=== PATIENT | female | born 1930 | race Caucasian/White ===

== ENCOUNTER 2016-07-06 08:08 | Emergency (ER) | payer MEDICARE ==
--- NOTE | 2016-07-06 08:40 | Emergency Department Record ---
History of Present Illness - General Chief complaint: Extremity Problem Stated complaint: HAND NOT HEALING Time Seen by Provider: 07/06/16 08:31 Source: Patient Mode of Arrival: Ambulatory - History of Present Illness Initial comments: Patient got her hands caught in a swinging door on june 22 and she is on coumadin and she was seen at [facility] and xray revealed no fractures and she has a large hematoma of her left hand and she saw Dr. Pam morrow and he said to stop the coumdin for 3 days and she is wearing an masha wrap. Onset/Timin -: Days(s) Location: Left, Hand History of Same: No Severity scale (1-10): 5 Quality: Other Consistency: Constant Improves with: Elevation Worsens with: Exertion, Palpation Associated Symptoms: Denies other symptoms - Related Data Home Medications Medication Instructions Recorded Confirmed Last Taken Pantoprazole Sodium [Protonix] 20 mg PO DAILY 09/04/14 07/06/16 07/06/16 Levothyroxine Sodium [Synthroid] 88 mcg PO DAILY 11/05/14 07/06/16 07/06/16 Warfarin Sodium [Coumadin] 2.5 mg PO ASDIR tab 08/10/15 07/06/16 07/06/16 Warfarin Sodium [Coumadin] 5 mg PO ASDIR 10/03/15 07/06/16 07/06/16 Previous Rx's Medication Instructions Recorded Diltiazem HCl [Cardizem Cd] 120 mg PO DAILY #90 cap.er.24h 12/01/14 Allergies Allergy/AdvReac Type Severity Reaction Status Date / Time venom-honey bee Allergy Intermediate SWELLING Verified 07/06/16 08:15 (GENERAL) Travel Screening - Travel/Exposure Within Last 30 Days Have you traveled within the last 30 days?: No - Travel/Exposure Within Last Year Have you traveled outside the [place] in the last year?: No - Additonal Travel Details Have you been exposed to anyone with a communicable illness?: No - Travel Symptoms Symptom Screening: None Review of Systems Reviewed: No additional complaints except as noted below Constitutional: Reports: As per HPI. Denies: Chills, Fever, Malaise, Night sweats, Weakness, Weight change Eyes: Reports: As per HPI. Denies: Eye discharge, Eye pain, Photophobia, Vision change ENT: Reports: As per HPI. Denies: Congestion, Dental pain, Ear pain, Epistaxis , Hearing loss, Throat pain Respiratory: Reports: As per HPI. Denies: Cough, Dyspnea, Hemoptysis, Stridor, Wheezes Cardiovascular: Reports: As per HPI. Denies: Arrhythmia, Chest pain, Dyspnea on exertion, Edema, Murmurs, Orthopnea, Palpitations, Paroxysmal nocturnal dyspnea, Rheumatic Fever, Syncope Endocrine: Reports: As per HPI. Denies: Fatigue, Heat or cold intolerance, Polydipsia, Polyuria Gastrointestinal: Reports: As per HPI. Denies: Abdominal pain, Constipation, Diarrhea, Hematemesis, Hematochezia, Melena, Nausea, Vomiting Genitourinary: Reports: As per HPI. Denies: Abnormal menses, Discharge, Dyspareunia, Dysuria, Frequency, Hematuria, Incontinence, Retention, Urgency Musculoskeletal: Reports: As per HPI. Denies: Arthralgia, Back pain, Gout, Joint swelling, Myalgia, Neck pain Skin: Reports: As per HPI. Denies: Bruising, Change in color, Change in hair/ nails, Lesions, Pruritus, Rash Neurological: Reports: As per HPI. Denies: Abnormal gait, Confusion, Headache, Numbness, Paresthesias, Seizure, Tingling, Tremors, Vertigo, Weakness Psychiatric: Reports: As per HPI. Denies: Anxiety, Auditory hallucinations, Depression, Homicidal thoughts, Suicidal thoughts, Visual hallucinations Hematological/Lymphatic: Reports: As per HPI. 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 - RESPIRATORY Hx Respiratory Disorders: No - CARDIOVASCULAR Hx Cardio Disorders: Yes Hx Chest Pain: No Hx Irregular Heartbeat: Yes (Hx atrial fibrillation 08/2014) Hx Palpitations: Yes (Hx atrial fibrillation 08/2014) Hx Coronary Stent: No Comment:: Aortic stenosis - NEURO Hx Neuro Disorders: No - GI Hx GI Disorders: Yes Hx Reflux: Yes Hx Ulcer: Yes - Hx Genitourinary Disorders: No - ENDOCRINE Hx Endocrine Disorders: Yes Hx Diabetes: No Hx Thyroid Disease: Yes (Hypothyroid) - MUSCULOSKELETAL Hx Musculoskeletal Disorders: Yes Hx Arthritis: Yes - PSYCH Hx Psych Problems: Yes Hx Anxiety: Yes - HEMATOLOGY/ONCOLOGY Hx Hematology/Oncology Disorders: Yes Hx Bruising: Yes Family Medical History Any Significant Family History?: No Physical Exam - General General Appearance: Alert, Oriented x3, Cooperative, No acute distress - Head Head exam: Normal inspection - Eye Eye exam: Normal appearance, PERRL Pupils: Normal accommodation - ENT ENT exam: Normal exam, Mucous membranes moist, Normal external ear exam, Normal orophraynx, TM's normal bilaterally Ear exam: Normal external inspection. negative: External canal tenderness Nasal Exam: Normal inspection. negative: Discharge, Sinus tenderness Mouth exam: Normal external inspection, Tongue normal Teeth exam: Normal inspection. negative: Dental caries Throat exam: Normal inspection. negative: Tonsillar erythema, Tonsillar exudate - Neck Neck exam: Normal inspection, Full ROM. negative: Tenderness - Respiratory Respiratory exam: Normal lung sounds bilaterally. negative: Respiratory distress - Cardiovascular Cardiovascular Exam: Regular rate, Normal rhythm, Normal heart sounds - GI/Abdominal GI/Abdominal exam: Soft, Normal bowel sounds. negative: Tenderness - Rectal Rectal exam: Deferred - exam: Deferred - Extremities Extremities exam: Normal inspection, Full ROM, Normal capillary refill, Other ( hematoma on the dorsal side of the hand. Full ROM of fingers and wrist). negative: Tenderness - Back Back exam: Reports: Normal inspection, Full ROM. Denies: Muscle spasm, Rash noted, Tenderness - Neurological Neurological exam: Alert, Normal gait, Oriented X3, Reflexes normal - Psychiatric Psychiatric exam: Normal affect, Normal mood - Skin Skin exam: Dry, Intact, Normal color, Warm Course Vital Signs 07/06/16 08:17 Temperature 97.5 F L Pulse Rate 80 Respiratory 20 Rate Blood Pressure 156/68 Pulse Ox 98 - Reevaluation(s) Reevaluation #1: patient has an outpatient coumadin draw today and I advised she keep that appointment. 07/06/16 08:41 Disposition Clinical Impression: Traumatic hematoma of right hand Qualifiers: Encounter type: initial encounter Qualified Code(s): S60.221A - Contusion of right hand, initial encounter Disposition: Home, Self-Care Condition: (1) Good Instructions: Contusion in Adults (ED) Additional Instructions: use the masha wrap follow up with family in 5 days Forms: Patient Portal Access Time of Disposition: 08:42
== END 2016-07-06 08:49 | disposition home or self-care (01) ==
LOC: ER 08:08
DX: S60.221A Contusion of right hand, initial encounter (principal); W23.0XXA Caught, crushed, jammed, or pinched between moving objects, initial encounter; I48.91 Unspecified atrial fibrillation; Z79.01 Long term (current) use of anticoagulants
CPT/HCPCS: 85610; 99282

== ENCOUNTER 2016-08-17 10:26 | Emergency (ER) | payer MEDICARE ==
--- NOTE | 2016-08-17 11:29 | Emergency Department Record ---
History of Present Illness - General Chief Complaint: Neck Injury/Pain Stated Complaint: STIFF NECK Time Seen by Provider: 08/17/16 11:12 Source: Patient, RN notes reviewed Mode of Arrival: Ambulatory - History of Present Illness Initial Comments: sleeping with an open window and now her neck is stiff on the right side and no trauma and she has tried heat and she is on coumadin for a fib MD Complaint: Neck pain Onset/Timin -: Days(s) Place: Home Quality: Aching Consistency: Constant Improves With: None Worsens With: Movement of extremity - Related Data Home Medications Medication Instructions Recorded Confirmed Last Taken Pantoprazole Sodium [Protonix] 20 mg PO DAILY 09/04/14 08/17/16 08/16/16 Levothyroxine Sodium [Synthroid] 100 mcg PO DAILY 11/05/14 08/17/16 08/17/16 Warfarin Sodium [Coumadin] 2.5 mg PO ASDIR tab 08/10/15 08/17/16 08/16/16 Previous Rx's Medication Instructions Recorded Diltiazem HCl [Cardizem Cd] 120 mg PO DAILY #90 cap.er.24h 12/01/14 Cyclobenzaprine HCl [Flexeril] 5 mg PO TID #30 tab 08/17/16 Allergies Allergy/AdvReac Type Severity Reaction Status Date / Time venom-honey bee Allergy Intermediate SWELLING Verified 07/06/16 08:15 (GENERAL) Travel Screening - Travel/Exposure Within Last 30 Days Have you traveled within the last 30 days?: No - Travel/Exposure Within Last Year Have you traveled outside the [place] in the last year?: No - Additonal Travel Details Have you been exposed to anyone with a communicable illness?: No - Travel Symptoms Symptom Screening: None Review of Systems Reviewed: No additional complaints except as noted below Constitutional: Reports: As per HPI. Denies: Chills, Fever, Malaise, Night sweats, Weakness, Weight change Eyes: Reports: As per HPI. Denies: Eye discharge, Eye pain, Photophobia, Vision change ENT: Reports: As per HPI. Denies: Congestion, Dental pain, Ear pain, Epistaxis , Hearing loss, Throat pain Respiratory: Reports: As per HPI. Denies: Cough, Dyspnea, Hemoptysis, Stridor, Wheezes Cardiovascular: Reports: As per HPI. Denies: Arrhythmia, Chest pain, Dyspnea on exertion, Edema, Murmurs, Orthopnea, Palpitations, Paroxysmal nocturnal dyspnea, Rheumatic Fever, Syncope Endocrine: Reports: As per HPI. Denies: Fatigue, Heat or cold intolerance, Polydipsia, Polyuria Gastrointestinal: Reports: As per HPI. Denies: Abdominal pain, Constipation, Diarrhea, Hematemesis, Hematochezia, Melena, Nausea, Vomiting Genitourinary: Reports: As per HPI. Denies: Abnormal menses, Discharge, Dyspareunia, Dysuria, Frequency, Hematuria, Incontinence, Retention, Urgency Musculoskeletal: Reports: As per HPI, Neck pain. Denies: Arthralgia, Back pain , Gout, Joint swelling, Myalgia Skin: Reports: As per HPI. Denies: Bruising, Change in color, Change in hair/ nails, Lesions, Pruritus, Rash Neurological: Reports: As per HPI. Denies: Abnormal gait, Confusion, Headache, Numbness, Paresthesias, Seizure, Tingling, Tremors, Vertigo, Weakness Psychiatric: Reports: As per HPI. Denies: Anxiety, Auditory hallucinations, Depression, Homicidal thoughts, Suicidal thoughts, Visual hallucinations Hematological/Lymphatic: Reports: As per HPI. 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 - RESPIRATORY Hx Respiratory Disorders: No - CARDIOVASCULAR Hx Cardio Disorders: Yes Hx Chest Pain: No Hx Irregular Heartbeat: Yes (Hx atrial fibrillation 08/2014) Hx Palpitations: Yes (Hx atrial fibrillation 08/2014) Hx Coronary Stent: No Comment:: Aortic stenosis - NEURO Hx Neuro Disorders: No - GI Hx GI Disorders: Yes Hx Reflux: Yes Hx Ulcer: Yes - Hx Genitourinary Disorders: No - ENDOCRINE Hx Endocrine Disorders: Yes Hx Diabetes: No Hx Thyroid Disease: Yes (Hypothyroid) - MUSCULOSKELETAL Hx Musculoskeletal Disorders: Yes Hx Arthritis: Yes - PSYCH Hx Psych Problems: Yes Hx Anxiety: Yes - HEMATOLOGY/ONCOLOGY Hx Hematology/Oncology Disorders: Yes Hx Bruising: Yes Family Medical History Any Significant Family History?: No Physical Exam - General General Appearance: Alert, Oriented x3, Cooperative, No acute distress - Head Head exam: Normal inspection - Eye Eye exam: Normal appearance, PERRL Pupils: Normal accommodation - ENT ENT exam: Normal exam, Mucous membranes moist, Normal external ear exam, Normal orophraynx, TM's normal bilaterally Ear exam: Normal external inspection. negative: External canal tenderness Nasal Exam: Normal inspection. negative: Discharge, Sinus tenderness Mouth exam: Normal external inspection, Tongue normal Teeth exam: Normal inspection. negative: Dental caries Throat exam: Normal inspection. negative: Tonsillar erythema, Tonsillar exudate - Neck Neck exam: Normal inspection, Full ROM, Tenderness (right trapizus muscle pain and right paravertebral muscle pain. ) - Respiratory Respiratory exam: Normal lung sounds bilaterally. negative: Respiratory distress - Cardiovascular Cardiovascular Exam: Regular rate, Normal rhythm, Normal heart sounds - GI/Abdominal GI/Abdominal exam: Soft, Normal bowel sounds. negative: Tenderness - Rectal Rectal exam: Deferred - exam: Deferred - Extremities Extremities exam: Normal inspection, Full ROM, Normal capillary refill. negative: Tenderness - Back Back exam: Reports: Normal inspection, Full ROM. Denies: Muscle spasm, Rash noted, Tenderness - Neurological Neurological exam: Alert, Normal gait, Oriented X3, Reflexes normal - Psychiatric Psychiatric exam: Normal affect, Normal mood - Skin Skin exam: Dry, Intact, Normal color, Warm Course Vital Signs 08/17/16 10:43 Temperature 97.6 F Pulse Rate 78 Respiratory 20 Rate Blood Pressure 156/76 Pulse Ox 96 Disposition Clinical Impression: Cervical strain Qualifiers: Encounter type: initial encounter Qualified Code(s): S16.1XXA - Strain of muscle, fascia and tendon at neck level, initial encounter Disposition: Home, Self-Care Condition: (1) Good Instructions: Cervical Sprain (ED) Additional Instructions: heat three times a day follow up with family on monday use tylenal three times a day Prescriptions: Cyclobenzaprine HCl [Flexeril] 5 mg PO TID #30 tab Forms: Patient Portal Access Time of Disposition: 11:29
== END 2016-08-17 11:38 | disposition home or self-care (01) ==
LOC: ER 10:26
DX: S16.1XXA Strain of muscle, fascia and tendon at neck level, initial encounter (principal); I48.91 Unspecified atrial fibrillation; Z79.4 Long term (current) use of insulin; X58.XXXA Exposure to other specified factors, initial encounter
CPT/HCPCS: 99282

== ENCOUNTER 2017-05-25 12:25 | Emergency (ER) | payer MEDICARE ==
--- NOTE | 2017-05-25 12:36 | Emergency Department Record ---
History of Present Illness - General Chief Complaint: Trauma Stated Complaint: FELL HIT HEAD Time Seen by Provider: 05/25/17 12:30 Source: Patient, Family Mode of Arrival: Ambulatory Limitations: No limitations - History of Present Illness Initial Comments: 86 yo female presents after a fall about one hour prior to arrival. She was walking up a step in her garage and fell backward. She hit the back of her head. No LOC. She was able to get up immediately. She has an area of swelling over the right posterior scalp. No headache, confusion, dizziness, or nausea. She is on the Coumadin for atrial fibrillation. No other complaints or injuries. MD Complaint: Fall -: Hour(s) (1) Consistency: Constant Context: Mechanical fall, Other Associated Symptoms: Denies other symptoms Treatments Prior to Arrival: Other (Coumadin) - Related Data Previous Rx's Medication Instructions Recorded Diltiazem HCl [Cardizem Cd] 120 mg PO DAILY #90 cap.er.24h 12/01/14 Allergies Allergy/AdvReac Type Severity Reaction Status Date / Time venom-honey bee Allergy Intermediate SWELLING Verified 05/25/17 13:09 (GENERAL) Review of Systems Constitutional: Denies: Chills, Fever, Malaise, Weakness Eyes: Denies: Eye discharge ENT: Denies: Congestion, Throat pain Respiratory: Denies: Cough, Dyspnea, Hemoptysis, Stridor, Wheezes Cardiovascular: Denies: Chest pain, Palpitations (history of atrial fibrillation ), Syncope Endocrine: Denies: Fatigue, Polydipsia, Polyuria Gastrointestinal: Denies: Abdominal pain, Diarrhea, Nausea, Vomiting Genitourinary: Denies: Dysuria, Urgency Musculoskeletal: Denies: Arthralgia, Back pain, Myalgia Skin: Reports: Bruising Neurological: Denies: Abnormal gait, Confusion, Headache, Numbness, Seizure, Tingling, Tremors, Vertigo, Weakness Psychiatric: Denies: Anxiety Hematological/Lymphatic: Reports: As per HPI, Easy bleeding, Easy bruising Past Medical History - SOCIAL HISTORY Smoking Status: Never smoker Drug Use: None - 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 - RESPIRATORY Hx Respiratory Disorders: No - CARDIOVASCULAR Hx Cardio Disorders: Yes Hx Chest Pain: No Hx Irregular Heartbeat: Yes (Hx atrial fibrillation 08/2014) Hx Palpitations: Yes (Hx atrial fibrillation 08/2014) Hx Coronary Stent: No Comment:: Aortic stenosis - NEURO Hx Neuro Disorders: No - GI Hx GI Disorders: Yes Hx Reflux: Yes Hx Ulcer: Yes - Hx Genitourinary Disorders: No - ENDOCRINE Hx Endocrine Disorders: Yes Hx Diabetes: No Hx Thyroid Disease: Yes (Hypothyroid) - MUSCULOSKELETAL Hx Musculoskeletal Disorders: Yes Hx Arthritis: Yes - PSYCH Hx Psych Problems: Yes Hx Anxiety: Yes - HEMATOLOGY/ONCOLOGY Hx Hematology/Oncology Disorders: Yes Hx Bruising: Yes Physical Exam - General General Appearance: Alert, Oriented x3, Cooperative, No acute distress Limitations: No limitations - Head Head exam: negative: Atraumatic, Normal inspection Head exam detail: Contusion, Hematoma Image of Face/Head: 1 - mild swelling of the right posterior scalp - Eye Eye exam: Normal appearance, PERRL, EOMI. negative: Conjunctival injection, Scleral icterus - ENT ENT exam: Normal exam, Mucous membranes moist Ear exam: Normal external inspection Nasal Exam: Normal inspection Mouth exam: Normal external inspection Teeth exam: Normal inspection Throat exam: Normal inspection - Neck Neck exam: Normal inspection, Full ROM, Other (Non tender to palpation). negative: Tenderness - Respiratory Respiratory exam: Normal lung sounds bilaterally. negative: Respiratory distress, Rhonchi, Stridor, Wheezes - Cardiovascular Cardiovascular Exam: Regular rate. negative: Normal rhythm Peripheral Pulses: 2+: Radial (R), Radial (L) - GI/Abdominal GI/Abdominal exam: Soft. negative: Tenderness - Rectal Rectal exam: Deferred - exam: Deferred - Extremities Extremities exam: Normal inspection, Full ROM, Normal capillary refill. negative: Calf tenderness, Joint swelling, Pedal edema, Tenderness - Back Back exam: Reports: Normal inspection, Full ROM, Other (No bruising or abrasions ). Denies: CVA tenderness (R), CVA tenderness (L), Muscle spasm, Paraspinal tenderness, Tenderness, Vertebral tenderness - Neurological Neurological exam: Alert, Oriented X3. negative: Abnormal gait - Psychiatric Psychiatric exam: Normal affect, Normal mood - Skin Skin exam: Other (scalp abrasion) Course - Reevaluation(s) Reevaluation #1: 05/25/17 12:35 Given the patient is on Coumadin and has a head injury she was made a Trauma Alert 05/25/17 12:44 EKG NSR rate 82 intervals Qtc 466, axis rightward, No acute ST changes. 05/25/17 13:25 The HCT was negative for acute intracranial process. She has a posterior scalp hematoma The Cervical CT was negative for acute injury. INR is 1.8 Given her scalp hematoma on Coumadin Trauma will be consulted I QUITA Parada of trauma he agrees with transfer for observation. He recommends vitamin k 5mg at this time Medical Decision Making - Lab Data Result diagrams: 05/25/17 12:30 05/25/17 12:30 Disposition Disposition: Transfer Clinical Impression: Hematoma of scalp, HX: anticoagulation Disposition: Acute Care Hospital Transfer Transfer To: [facility] Reason For Transfer: Head injury on coumadin Accepting Physician: Skip Time Discussed w/Accepting Physician: 13:33 Condition: (2) Stable Forms: Patient Portal Access Time of Disposition: 13:33 Quality - Quality Measures Quality Measures: N/A - Blood Pressure Screening Does Patient Have Any of the Following: Active Dx of HTN Blood Pressure Classification: Hypertensive Reading Systolic Measurement: 150 Diastolic Measurement: 61 Screening for High Blood Pressure: Patient Exclusion, Hx of HTN [[id number]]
[2017-05-25 12:39] LABS: BASO % 0.1 % (0-6); EOS % 0.3 % (0-6); GRAN % 74.3 % (47-80); HEMATOCRIT 39.5 % (35.0-47.0); HEMOGLOBIN 12.8 gm/dl (11.6-16.0); MEAN CELL VOLUME 94.5 fl (81-97); MEAN CORPUSCULAR HEMOGLOBIN 30.6 pg (27-33); MEAN CORPUSCULAR HGB CONC 32.4 g/dl (32-36); MEAN PLATELET VOLUME 11.1 fl (7.4-10.4); MONO % 8.3 % (0-9); PLATELET COUNT 230 K/uL (130-400); RED BLOOD COUNT 4.18 M/uL (3.80-5.40); RED CELL DISTRIBUTION WIDTH 13.1 % (11.5-14.5); WHITE BLOOD COUNT W/O DIFF 9.4 K/uL (4.2-12.2)
[2017-05-25 12:53] LABS: BILIRUBIN,TOTAL 0.4 mg/dL (0.2-1.0); TOTAL PROTEIN 6.9 g/dL (6.6-8.7)
[2017-05-25 12:58] LABS: ALBUMIN 4.6 g/dL (4.0-5.0)
[2017-05-25 12:59] LABS: INR 1.8; PARTIAL THROMBOPLASTIN TIME 34.8 SECONDS (24.5-39.1)
[2017-05-25] MEDS ORDERED: PHYTONADIONE 10 MG/ML AMPUL PO ONE (13:43)
--- NOTE | 2017-05-25 15:14 | CT SCAN REPORT ---
EXAM: CT OF THE CERVICAL SPINE HISTORY: FALL. TECHNIQUE: Axial CT images of the cervical spine were obtained with coronal and sagittal reconstructions. Comparison: None. FINDINGS: Evaluation of spinal canal contents is limited due to CT technique, however, the vertebral body height and alignment is preserved. The atlantoaxial space is preserved. The lateral masses are not displaced. Degenerative changes at multiple levels, greatest at C6-C7. Limited evaluation of the lung apices is unremarkable. IMPRESSION: NO CT EVIDENCE FOR ACUTE CERVICAL SPINE ABNORMALITY. JOB NUMBER: [id number] [facility]TDD
--- NOTE | 2017-05-25 15:17 | CT SCAN REPORT ---
EXAM: CT OF THE BRAIN HISTORY: FALL. TECHNIQUE: CT of the brain without contrast was obtained. Comparison: None. FINDINGS: The globes are intact. The paranasal sinuses and mastoid air cells are unremarkable. No displaced or depressed skull fracture. Posterior parietal scalp hematoma. Negative for acute intracranial hemorrhage. CT is limited for evaluation of acute infarct. No CT evidence for large or territorial acute infarct. No mass or midline shift. Age appropriate atrophy with minor small vessel ischemic change. IMPRESSION: POSTERIOR RIGHT PARIETAL SCALP HEMATOMA. ATROPHY. SMALL VESSEL ISCHEMIC CHANGE. JOB NUMBER: [id number] [facility]
== END 2017-05-25 17:23 | disposition short-term general hospital (02) ==
LOC: ER 12:25
DX: S00.03XA Contusion of scalp, initial encounter (principal); W10.9XXA Fall (on) (from) unspecified stairs and steps, initial encounter; Y92.008 Other place in unspecified non-institutional (private) residence as the place of occurrence of the external cause; I48.91 Unspecified atrial fibrillation; I10 Essential (primary) hypertension; Z79.01 Long term (current) use of anticoagulants; E03.9 Hypothyroidism, unspecified
CPT/HCPCS: 99285 ×2; 85025; 85730; 85610; 80053; 72125; 70450; 93005; 93010; G0480; 80320

== ENCOUNTER 2017-06-02 13:05 | Emergency (ER) | payer MEDICARE ==
[2017-06-02] MEDS ORDERED: ACETAMINOPHEN 500 MG TABLET PO ONE (13:25)
--- NOTE | 2017-06-02 13:27 | Emergency Department Record ---
History of Present Illness - General Chief complaint: Head Injury Stated complaint: HEAD INJURY Time Seen by Provider: 06/02/17 13:21 Source: Patient, Family Mode of Arrival: Ambulatory Limitations: No limitations - History of Present Illness Initial comments: 86 yo female presents with posterior head pain. She fell last week and hit the back of her head. She was on Coumadin at that time. She had a negative head CT but did have large posterior scalp hematoma. She was transferred to [facility] , given Vitamin K and rescanned. No ICH occurred. She was discharged on Eliquis. She has done well since [place]. She noted pain today in the posterior head near the scalp hematoma. NO new injuries. The swelling has been improving since discharge from [facility]. No dizziness, nausea, or vomiting. She has developed diarrhea. MD Complaint: Head injury, Head pain -: Days(s) (1) Mechanism of Injury: Mechanical fall (one week ago) Location: Other (posterior) Loss of Consciousness: No Previous Trauma to this Area: Yes Place: Home Radiation: None Severity: Moderate Quality: Aching Consistency: Constant Provoking factors: None known Other Injuries: None Context: On other anticoagulant Associated Symptoms: Denies other symptoms - Related Data Home Medications Medication Instructions Recorded Confirmed Last Taken Apixaban [Eliquis] 5 mg PO BID 06/02/17 06/02/17 06/02/17 Previous Rx's Medication Instructions Recorded Diltiazem HCl [Cardizem Cd] 120 mg PO DAILY #90 cap.er.24h 12/01/14 Allergies/Adverse reactions: Allergies Allergy/AdvReac Type Severity Reaction Status Date / Time venom-honey bee Allergy Intermediate SWELLING Verified 06/02/17 13:26 (GENERAL) Review of Systems Constitutional: Denies: Chills, Fever, Malaise, Night sweats, Weakness Eyes: Denies: Eye discharge, Eye pain, Photophobia, Vision change ENT: Denies: Congestion, Throat pain Respiratory: Denies: Cough, Dyspnea, Hemoptysis Cardiovascular: Denies: Chest pain, Palpitations, Syncope Endocrine: Denies: Fatigue Gastrointestinal: Reports: Diarrhea. Denies: Abdominal pain, Hematemesis, Hematochezia, Melena, Nausea, Vomiting Genitourinary: Denies: Dysuria, Hematuria Musculoskeletal: Reports: Back pain (tail bone). Denies: Arthralgia Skin: Reports: Bruising Neurological: Reports: Headache. Denies: Confusion Psychiatric: Denies: Anxiety Hematological/Lymphatic: Reports: Easy bruising Past Medical History - SOCIAL HISTORY Smoking Status: Never smoker Drug Use: None - MUSEUM GUIDE History MUSEUM GUIDE history: Reports: no MUSEUM GUIDE history - RESPIRATORY Hx Respiratory Disorders: No - CARDIOVASCULAR Hx Cardio Disorders: Yes Hx Chest Pain: No Hx Irregular Heartbeat: Yes (Hx atrial fibrillation 08/2014) Hx Palpitations: Yes (Hx atrial fibrillation 08/2014) Hx Coronary Stent: No Comment:: Aortic stenosis - NEURO Hx Neuro Disorders: No - GI Hx GI Disorders: Yes Hx Reflux: Yes Hx Ulcer: Yes - Hx Genitourinary Disorders: No - ENDOCRINE Hx Endocrine Disorders: Yes Hx Diabetes: No Hx Thyroid Disease: Yes (Hypothyroid) - MUSCULOSKELETAL Hx Musculoskeletal Disorders: Yes Hx Arthritis: Yes - PSYCH Hx Psych Problems: Yes Hx Anxiety: Yes - HEMATOLOGY/ONCOLOGY Hx Hematology/Oncology Disorders: Yes Hx Bruising: Yes Physical Exam - General General Appearance: Alert, Oriented x3, Cooperative, No acute distress, Other ( Well appearing, conversational) Limitations: No limitations - Head Head exam: negative: Atraumatic Head exam detail: Hematoma Image of Face/Head: 1 - soft scalp hematoma, bruising, - Eye Eye exam: Normal appearance, PERRL. negative: Conjunctival injection, Periorbital swelling, Periorbital tenderness - ENT ENT exam: Normal exam, Normal external ear exam Ear exam: Normal external inspection Nasal Exam: Normal inspection Mouth exam: Normal external inspection Teeth exam: Normal inspection Throat exam: Normal inspection - Neck Neck exam: Normal inspection, Full ROM. negative: Tenderness - Respiratory Respiratory exam: Normal lung sounds bilaterally. negative: Respiratory distress - Cardiovascular Cardiovascular Exam: Regular rate, Normal rhythm, Normal heart sounds Peripheral Pulses: 2+: Radial (R), Radial (L) - GI/Abdominal GI/Abdominal exam: Soft. negative: Tenderness - Rectal Rectal exam: Deferred - exam: Deferred - Extremities Extremities exam: Normal inspection - Back Back exam: Reports: Tenderness (mild tenderness tailbone). Denies: CVA tenderness (R), CVA tenderness (L) - Neurological Neurological exam: Alert, CN II-XII intact, Normal gait, Oriented X3. negative : Altered - Psychiatric Psychiatric exam: Normal affect, Normal mood - Skin Skin exam: Other (bruising to posterior scalp) Course - Reevaluation(s) Reevaluation #1: CT from prior visit reviewed. 06/02/17 13:29 06/02/17 14:35 No acute intracranial injury. The scalp hematoma again noted. It is larger that the initial but the patient states it enlarged the first few days and now has decreased in size. She is alert, appears well, no acute distress. No signs of new injury. DC home with supportive treatment. 06/02/17 14:47 No acute changes on the labs Medical Decision Making - Lab Data Result diagrams: 06/02/17 13:25 06/02/17 13:25 Disposition Disposition: Discharge Clinical Impression: Hematoma of scalp Disposition: Home, Self-Care Condition: (1) Good Instructions: Concussion (ED) Additional Instructions: Return if the pain increases, swelling increases, dizziness, or any new concerns Tylenol for the pain. Forms: Patient Portal Access Time of Disposition: 14:37 Quality - Quality Measures Quality Measures: N/A - Blood Pressure Screening Does Patient Have Any of the Following: Active Dx of HTN Blood Pressure Classification: Hypertensive Reading Systolic Measurement: 181 Diastolic Measurement: 71 Screening for High Blood Pressure: Patient Exclusion, Hx of HTN [[id number]]
[2017-06-02 13:33] LABS: BASO % 0.2 % (0-6); EOS % 0.7 % (0-6); HEMATOCRIT 33.7 % (35.0-47.0); LYMPH % 12.2 % (16-45); MEAN CELL VOLUME 94.1 fl (81-97); MEAN CORPUSCULAR HEMOGLOBIN 30.7 pg (27-33); MEAN CORPUSCULAR HGB CONC 32.6 g/dl (32-36); MONO % 10.9 % (0-9); PLATELET COUNT 328 K/uL (130-400); RED BLOOD COUNT 3.58 M/uL (3.80-5.40); RED CELL DISTRIBUTION WIDTH 13.2 % (11.5-14.5)
[2017-06-02 13:43] LABS: INR 1.1; PARTIAL THROMBOPLASTIN TIME 38.3 SECONDS (24.5-39.1); PROTHROMBIN TIME (PATIENT) 11.8 SECONDS (9.5-12.1)
[2017-06-02 14:45] LABS: BLOOD UREA NITROGEN 16 mg/dL (8-23); CREATININE 0.7 mg/dL (0.5-0.9); EST GLOMERULAR FILTRATION RATE > 60 mL/min; GLUCOSE,RANDOM 109 mg/dL (74-109)
--- NOTE | 2017-06-04 10:55 | CT SCAN REPORT ---
EXAM: CT SCAN HEAD WO CONTRAST HISTORY: PATIENT FELL LAST WEEK WITH HEADACHE POSTERIORLY TODAY. TECHNIQUE: Axial CT scan of the head performed without IV contrast. COMPARISON: Head CT dated 05/25/17. ENCOUNTER: Subsequent. FINDINGS: The size of the previously noted scalp hematoma on the right has not really regressed appreciably, if anything appearing slightly more prominent. The underlying calvarium appears intact with no underlying fracture seen and no acute intracranial hemorrhage identified. No focal mass effect or midline shift apparent. Moderate generalized atrophy with some chronic-appearing deep white matter changes as before, nonspecific but likely representing some chronic small vessel deep white matter ischemic disease. No depressed calvarial fracture is evident. There is opacification of some right mastoid air cells inferiorly, as was the case previously as well. IMPRESSION: 1. NO DEFINITE ACUTE INTRACRANIAL HEMORRHAGE OR FOCAL MASS EFFECT EVIDENT. 2. GENERALIZED ATROPHY WITH CHRONIC-APPEARING DEEP WHITE MATTER CHANGES BEFORE. 3. PROMINENT SCALP HEMATOMA PERSISTS IN THE POSTERIOR RIGHT PARIETAL REGION APPEARING SLIGHTLY LARGER THAN ON 05/25/17. NO UNDERLYING CALVARIAL FRACTURE EVIDENT. JOB NUMBER: [id number] [facility]
== END 2017-06-02 14:56 | disposition home or self-care (01) ==
LOC: ER 13:05
DX: S00.03XA Contusion of scalp, initial encounter (principal); R51 Headache; M54.5 Low back pain; R19.7 Diarrhea, unspecified; I48.2 Chronic atrial fibrillation; Z79.01 Long term (current) use of anticoagulants; W19.XXXA Unspecified fall, initial encounter; Y92.009 Unspecified place in unspecified non-institutional (private) residence as the place of occurrence of the external cause
CPT/HCPCS: 70450; 80048; 85025; 85610; 85730; 99283; 99284